=== PATIENT | male | born 1985 | race Caucasian/White ===

== ENCOUNTER 2019-06-07 18:02 | Emergency (ER) | payer OTHER ==
[~2019-06-07] VITALS: Ht 177.8 cm; Wt 81.6 kg
[2019-06-07] MEDS ORDERED: CONCERTA18 MG PO (18:26)
[2019-06-07] MEDS ORDERED: TRILEPTAL600 MG PO (18:26)
[2019-06-07] MEDS ORDERED: ATIVAN0.5 MG ORAL (18:26)
[2019-06-07] MEDS ORDERED: LEXAPRO10 MG ORAL (18:26)
[2019-06-07 18:33] VITALS: BP 140/68
--- NOTE | 2019-06-07 18:33 | NUR ---
ED Nurse Note: pt walked in to ED with friend due to sore throat for 1 week. pt also c/o fever at home. no fever noted on triage. AAO x4. respirations even and non-labored noted. will wait for the further order.
--- NOTE | 2019-06-07 18:47 | Emergency Room Report ---
History of Present Illness General Chief Complaint: Sore Throat Source: Patient Present Illness HPI 33-year-old male with no significant past medical history here complaining of 1 week of sore throat, and cough with yellow phlegm. Patient denies any ear pain congestion. Rating the pain in his throat 5 out of 10 without radiation. Reports that he has taken igja-fcv-gzhcehe cough medication with minimal relief. Denies shortness of breath and wheezing. Patient reports that he started having chills last night however denies any fever. Denies chest pain, abdominal pain, nausea vomiting. Denies recent travel, smoking, sick contact. Allergies: Coded Allergies: No Known Allergies (Unverified , 06/07/19) Patient History Past Medical History: see triage record Past Surgical History: unable to obtain Pertinent Family History: none Immunizations: UTD Reviewed Nursing Documentation: PMH: Agreed; PSxH: Agreed Nursing Documentation-PMH Past Medical History: No History, Except For History Of Psychiatric Problem: Yes Review of Systems All Other Systems: negative except mentioned in HPI Physical Exam Vital Signs Date Time Temp Pulse Resp B/P (MAP) Pulse Ox O2 Delivery O2 Flow Rate FiO2 06/07/19 18:20 98.6 69 19 140/68 (92) 96 Room Air Sp02 EP Interpretation: reviewed, normal General Appearance: normal inspection, well appearing, no apparent distress, alert Head: normocephalic, atraumatic Eyes: bilateral eye normal inspection, bilateral eye PERRL ENT: hearing grossly normal, no angioedema, normal voice, TMs + canals normal, uvula midline, moist mucus membranes, tonsillar swelling, pharyngeal erythema Neck: normal inspection, full range of motion, supple, no meningismus Respiratory: normal inspection, chest non-tender, lungs clear, no rhonchi, no wheezing Cardiovascular #1: normal inspection, normal peripheral pulses, regular rate, rhythm, no murmur, normal capillary refill Gastrointestinal: normal inspection, non tender, soft, no mass Genitourinary: no CVA tenderness Neurologic: normal inspection, alert, oriented x3 Psychiatric: normal inspection, judgement/insight normal, memory normal Skin: no rash, palpation normal Lymphatic: normal inspection, no adenopathy Medical Decision Making PA Attestation All my diagnosis and treatment plans were reviewed ad discussed with my supervising physician Dr. Ashby Diagnostic Impression: Primary Impression: Pharyngitis ER Course 33-year-old male with no significant past medical history here complaining of 1 week of sore throat, and cough with yellow phlegm. Patient denies any ear pain congestion. Rating the pain in his throat 5 out of 10 without radiation. Reports that he has taken vdnk-pyc-kokqtle cough medication with minimal relief. Denies shortness of breath and wheezing. Patient reports that he started having chills last night however denies any fever. Denies chest pain, abdominal pain, nausea vomiting. Denies recent travel, smoking, sick contact. Ddx considered but are not limited to: strep pharyngitis, URI, tonsilitis, peritonsillar abscess, influenza Vital signs: are WNL, pt. is afebrile H&PE are most consistent with: Pharyngitis ORDERS: Azithromycin, Phenergan, albuterol ED INTERVENTIONS: None required at this time. DISCHARGE: At this time pt. is stable for d/c to home. Will provide printed patient care instructions, and any necessary prescriptions. Care plan and follow up instructions have been discussed with the patient prior to discharge. Take medication as noted for follow-up with primary care provider if worsening symptoms return to the emergency room. Last Vital Signs Date Time Temp Pulse Resp B/P (MAP) Pulse Ox O2 Delivery O2 Flow Rate FiO2 06/07/19 18:33 98.6 69 19 140/68 96 Room Air Disposition: HOME, SELF-CARE Condition: Stable Scripts Albuterol Sulfate* (PROAIR HFA*) 8.5 Gm Hfa.aer.ad 2 PUFFS INH Q6H, #8.5 GM 0 Refills Prov: Torsten Durbin 06/07/19 Promethazine Hcl (PROMETHAZINE HCL*) 6.25 Mg/5 Ml Syrup 5 ML ORAL Q6H, #120 ML 0 Refills Prov: Torsten Durbin 06/07/19 Azithromycin* (ZITHROMAX*) 250 Mg Tablet 250 MG ORAL DAILY, #6 TAB 0 Refills Take two tables once daily for 1 day, then one tablet once daily for 4 days. Prov: Torsten Durbin 06/07/19 Patient Instructions: Pharyngitis, [id number] Additional Instructions: Take medication as directed follow-up with your primary care provider Torsten Durbin Jun 07, 2019 18:47
[2019-06-07] MEDS ORDERED: ZITHROMAX250 MG ORAL (18:48)
[2019-06-07] MEDS ORDERED: PROAIR HFA8.5 GM INH (18:48)
[2019-06-07] MEDS ORDERED: PROMETHAZI6.25 MG/1 ORAL (18:48)
[2019-06-07 18:56] VITALS: BP 140/68
--- NOTE | 2019-06-07 18:57 | NUR ---
ER DISCHARGE NOTE: Patient is cleared to be discharged per ERMD with friend, pt is aox4, on room air, with stable vital signs. pt was given dc and prescription instructions, pt was able to verbalize understanding, pt id band removed without complications. pt is able to ambulate with steady gait. pt took all belongings.
== END 2019-06-07 18:56 | disposition home or self-care (01) ==
LOC: EMR 18:43
DX: J02.9 Acute pharyngitis, unspecified (principal)
CPT/HCPCS: 99282